=== PATIENT | male | born 1975 | race Caucasian/White ===

== ENCOUNTER 2017-10-03 10:36 | Inpatient (IN) | payer BC, OTHER ==
[~2017-10-03] VITALS: Ht 177.8 cm; Wt 85.7 kg
[2017-10-03] MEDS ORDERED: MAGNESIUM HYDROXIDE 30 ML LIQUID UDC PO PRN (16:30)
[2017-10-03] MEDS ORDERED: HYDROCORTISONE 1% LOTION 118 ML BOTTLE TOP PRN (16:30)
[2017-10-03] MEDS ORDERED: LORAZEPAM 2 MG/1 ML VIAL IM PRN (16:30)
[2017-10-03] MEDS ORDERED: DICYCLOMINE HCL 20 MG TABLET PO PRN (16:30)
[2017-10-03] MEDS ORDERED: LOPERAMIDE HCL 2 MG CAPSULE PO PRN ×2 (16:30)
[2017-10-03] MEDS ORDERED: BUPRENORPHINE HCL 2 MG TAB.SUBL SL PRN (16:30)
[2017-10-03] MEDS ORDERED: MAG HYDROX/AL HYDROX/SIMETH 30 ML LIQUID UDC PO PRN (16:30)
[2017-10-03] MEDS ORDERED: ACETAMINOPHEN 325 MG TABLET PO PRN (16:30)
[2017-10-03] MEDS ORDERED: NICOTINE POLACRILEX 4 MG GUM-PK OF TEN BC PRN (16:30)
[2017-10-03] MEDS ORDERED: diphenhydrAMINE 50 MG CAPSULE PO PRN (16:30)
[2017-10-03] MEDS ORDERED: LORAZEPAM 1 MG TABLET PO PRN ×2 (16:30)
[2017-10-03] MEDS ORDERED: NICOTINE 14 MG/24HR PATCH TD PRN (16:30)
[2017-10-03] MEDS ORDERED: DOCUSATE SODIUM 250 MG CAPSULE PO PRN (16:30)
[2017-10-03] MEDS ORDERED: OMEPRAZOLE 20MG PO PRN (16:30)
[2017-10-03] MEDS ORDERED: MIRALAX 17 GM POWD.PACK PO PRN (16:30)
[2017-10-03] MEDS ORDERED: VALS320T2 PO (17:02)
[2017-10-03] MEDS ORDERED: IBUP-1957 PO (17:02)
[2017-10-03] MEDS ORDERED: QUET50TA PO (17:02)
[2017-10-03] MEDS ORDERED: GABA600T2 PO (17:02)
[2017-10-03] MEDS ORDERED: OMEP20CA10 PO (17:02)
[2017-10-03] MEDS ORDERED: METH-406 PO (17:02)
[2017-10-03] MEDS ORDERED: BENZ12LI2 MM (17:02)
[2017-10-03] MEDS ORDERED: ALBU8HFA4 (17:02)
[2017-10-03] MEDS ORDERED: HYDR-3026 PO (17:02)
[2017-10-03] MEDS ORDERED: ONDA4TAB11 PO (17:02)
[2017-10-03] MEDS: LORAZEPAM 1 MG TABLET PO SCH ×2 (17:13→21:13)
[2017-10-03 17:22] LABS: *AMPHETAMINE, URINE NEGATIVE (NEGATIVE); *BARBITURATE, URINE NEGATIVE (NEGATIVE); *CANNABINOID, URINE NEGATIVE (NEGATIVE); *COCCAINE, URINE NEGATIVE (NEGATIVE); *OPIATE, URINE NEGATIVE (NEGATIVE); *PHENCYCLIDINE SCREEN,URINE NEGATIVE (NEGATIVE)
[2017-10-03] MEDS: BUPRENORPHINE HCL 2 MG TAB.SUBL SL SCH ×2 (17:28→21:15)
[2017-10-03] MEDS: ONDANSETRON ODT 4 MG TAB.RAPDIS SL PRN (17:31)
[2017-10-03] MEDS: THIAMINE HCL 100 MG TABLET PO SCH (17:32)
[2017-10-03 17:54] LABS: BASOPHILS % (AUTO) 0.3 % (0.0-2.0); EOSINOPHILS % (AUTO) 0.1 % (0.0-7.0); HEMATOCRIT 41.2 % (36.7-47.1); HEMOGLOBIN 14.2 g/dL (12.5-16.3); LYMPHOCYTES # (AUTO) 3.4 K/uL (20.0-40.0); LYMPHOCYTES % (AUTO) 35.5 % (20.5-51.5); MEAN CORPUSCULAR HEMOGLOBIN 28.4 uug (23.8-33.4); MEAN CORPUSCULAR HGB CONC 35 g/dL (32.5-36.3); MEAN CORPUSCULAR VOLUME 82.3 fL (73.0-96.2); MONOCYTES # (AUTO) 0.6 K/uL (2.0-10.0); MONOCYTES % (AUTO) 6.6 % (0.0-11.0); NEUTROPHILS # (AUTO) 5.5 K/uL (1.8-8.9); NEUTROPHILS % (AUTO) 57.5 % (38.5-71.5); PLATELET COUNT (AUTO) 222 K/uL (152-348); RED BLOOD CELL COUNT(AUTO) 5.01 MIL/uL (4.06-5.63); WHITE BLOOD COUNT (AUTO) 9.7 K/uL (3.6-10.2)
[2017-10-03 18:03] LABS: ETHANOL < 3 MG/DL (0-0)
[2017-10-03 18:10] LABS: ALANINE AMINOTRANSFERASE 36 U/L (16-63); ALKALINE PHOSPHATASE 87 U/L (50-136); AMYLASE 40 U/L (25-115); ASPARTATE AMINOTRANSFERASE 19 U/L (15-37); BILIRUBIN,TOTAL 0.4 mg/dL (0.2-1.0); CARBON DIOXIDE 27 mmol/L (21-32); CHLORIDE 104 mmol/L (98-107); GLUCOSE 82 mg/dL (74-106); MAGNESIUM 2.2 mg/dL (1.8-2.4); POTASSIUM 3.9 mmol/L (3.5-5.1); TOTAL PROTEIN, SERUM 7.5 g/dL (6.4-8.2); UREA NITROGEN, BLOOD 12 mg/dL (7-18)
[2017-10-03 20:00] VITALS: BP 149/91
[2017-10-03] MEDS: GABAPENTIN 600MG PO SCH (21:14)
[2017-10-03] MEDS: METHOCARBAMOL 750 MG TABLET PO PRN (21:15)
[2017-10-04] VITALS (7 sets, daily range): BP systolic 122–169; BP diastolic 71–105
[2017-10-04] MEDS: hydrALAZINE HCL 50 MG TABLET PO PRN (00:33)
[2017-10-04] MEDS: ALBUTEROL INHALER INH PRN (00:34)
[2017-10-04] MEDS: ONDANSETRON ODT 4 MG TAB.RAPDIS SL PRN (01:19)
[2017-10-04] MEDS: ONDANSETRON 4 MG/2 ML VIAL IM PRN (02:52)
[2017-10-04] MEDS: CLONIDINE HCL 0.1 MG TABLET PO PRN (04:21)
[2017-10-04] MEDS ORDERED: TUBERCULIN,PURIF.PROT.DERIV. 5 TU/0.1 ML TEST ID ONE (09:00)
[2017-10-04] MEDS: BUPRENORPHINE HCL 2 MG TAB.SUBL SL SCH ×3 (09:05→20:27)
[2017-10-04] MEDS: MULTIVITAMINS,THERAPEUTIC TABLET PO SCH (09:05)
[2017-10-04] MEDS: FOLIC ACID 1 MG TABLET PO SCH (09:05)
[2017-10-04] MEDS: THIAMINE HCL 100 MG TABLET PO SCH (09:05)
[2017-10-04] MEDS: LORAZEPAM 1 MG TABLET PO SCH ×3 (09:05→20:26)
[2017-10-04] MEDS: VALSARTAN 320MG PO SCH (09:10)
[2017-10-04] MEDS: HYDROCORTISONE 1% CREAM 30 GM TUBE TP PRN (09:10)
[2017-10-04] MEDS: GABAPENTIN 600MG PO SCH ×3 (09:10→21:59)
[2017-10-04] MEDS ORDERED: HYDROXYZINE PAMOATE 25 MG CAPSULE PO PRN (14:15)
[2017-10-04] MEDS: METHOCARBAMOL 750 MG TABLET PO PRN (20:26)
[2017-10-04] MEDS: QUETIAPINE FUMARATE 25 MG TABLET PO SCH (21:59)
[2017-10-05] VITALS (8 sets, daily range): BP systolic 112–162; BP diastolic 79–98
[2017-10-05] MEDS: hydrALAZINE HCL 50 MG TABLET PO PRN ×2 (01:53→19:32)
[2017-10-05] MEDS: LORAZEPAM 1 MG TABLET PO SCH ×2 (08:59→12:12)
[2017-10-05] MEDS: FOLIC ACID 1 MG TABLET PO SCH (08:59)
[2017-10-05] MEDS: MULTIVITAMINS,THERAPEUTIC TABLET PO SCH (08:59)
[2017-10-05] MEDS: THIAMINE HCL 100 MG TABLET PO SCH (08:59)
[2017-10-05] MEDS ORDERED: BUPRENORPHINE HCL 2 MG TAB.SUBL SL SCH (09:00)
[2017-10-05] MEDS: VALSARTAN 320MG PO SCH (09:00)
[2017-10-05] MEDS: GABAPENTIN 600MG PO SCH (09:09)
[2017-10-05 10:08] LABS: HEPATITIS B SURFACE AG Negative (Negative)
[2017-10-05] MEDS: ONDANSETRON ODT 4 MG TAB.RAPDIS SL PRN ×2 (12:12→21:45)
[2017-10-05] MEDS: BUPRENORPHINE HCL 2 MG TAB.SUBL SL SCH ×2 (14:56→21:45)
[2017-10-05] MEDS: KETOROLAC TROMETHAMINE 30 MG INJ IM PRN (14:58)
[2017-10-05] MEDS: ONDANSETRON 4 MG/2 ML VIAL IM PRN (14:59)
[2017-10-05] MEDS: DICYCLOMINE HCL 20 MG TABLET PO SCH ×2 (14:59→21:52)
[2017-10-05] MEDS: PATIENT MAY USE OWN MED- MD OK PO SCH (15:23)
[2017-10-05] MEDS: ALBUTEROL INHALER INH PRN (15:31)
[2017-10-05] MEDS ORDERED: LORAZEPAM 1 MG TABLET PO SCH ×2 (17:00→21:00)
[2017-10-05] MEDS ORDERED: LORAZEPAM 1 MG TABLET PO ONE (19:30)
[2017-10-05] MEDS ORDERED: GABAPENTIN 300 MG CAPSULE PO SCH (21:00)
[2017-10-05] MEDS: QUETIAPINE FUMARATE 25 MG TABLET PO SCH (21:52)
[2017-10-05] MEDS: IBUPROFEN 600 MG TABLET PO PRN (21:53)
[2017-10-05] MEDS: CLONIDINE HCL 0.1 MG TABLET PO SCH (21:53)
[2017-10-05] MEDS: CLONIDINE HCL 0.1 MG TABLET PO PRN (23:44)
[2017-10-06 04:00] VITALS: BP 125/48
[2017-10-06 08:00] VITALS: BP 114/66
[2017-10-06] MEDS: VALSARTAN 320MG PO SCH (08:32)
[2017-10-06] MEDS: FOLIC ACID 1 MG TABLET PO SCH (08:33)
[2017-10-06] MEDS: CLONIDINE HCL 0.1 MG TABLET PO SCH ×3 (08:33→20:02)
[2017-10-06] MEDS: THIAMINE HCL 100 MG TABLET PO SCH (08:33)
[2017-10-06] MEDS: LORAZEPAM 1 MG TABLET PO SCH ×2 (08:33→14:15)
[2017-10-06] MEDS: BUPRENORPHINE HCL 2 MG TAB.SUBL SL SCH ×3 (08:33→20:02)
[2017-10-06] MEDS: MULTIVITAMINS,THERAPEUTIC TABLET PO SCH (08:33)
[2017-10-06] MEDS: DICYCLOMINE HCL 20 MG TABLET PO SCH ×3 (08:33→20:06)
[2017-10-06] MEDS: PATIENT MAY USE OWN MED- MD OK PO SCH (08:33)
[2017-10-06] MEDS: ONDANSETRON ODT 4 MG TAB.RAPDIS SL PRN ×2 (11:05→19:57)
[2017-10-06 12:00] VITALS: BP 128/85
[2017-10-06] MEDS: KETOROLAC TROMETHAMINE 30 MG INJ IM PRN (12:08)
[2017-10-06] MEDS: ONDANSETRON 4 MG/2 ML VIAL IM PRN (12:10)
[2017-10-06] MEDS: ALBUTEROL INHALER INH PRN (12:18)
[2017-10-06] MEDS: GABAPENTIN 300 MG CAPSULE PO SCH ×2 (14:14→20:01)
[2017-10-06] MEDS: LIDOCAINE 5% PATCH TD SCH (14:15)
[2017-10-06 16:00] VITALS: BP 137/74
[2017-10-06 20:00] VITALS: BP 126/68
[2017-10-06] MEDS: IBUPROFEN 600 MG TABLET PO PRN (20:00)
[2017-10-06] MEDS: BACLOFEN 10 MG TABLET PO SCH (20:01)
[2017-10-06] MEDS: QUETIAPINE FUMARATE 25 MG TABLET PO SCH (20:06)
[2017-10-06] MEDS ORDERED: LORAZEPAM 1 MG TABLET PO SCH (21:00)
[2017-10-07] VITALS: BP 109/64
[2017-10-07 08:00] VITALS: BP 130/79
[2017-10-07] MEDS: GABAPENTIN 300 MG CAPSULE PO SCH ×3 (08:09→20:57)
[2017-10-07] MEDS: MULTIVITAMINS,THERAPEUTIC TABLET PO SCH (08:10)
[2017-10-07] MEDS: FOLIC ACID 1 MG TABLET PO SCH (08:10)
[2017-10-07] MEDS: THIAMINE HCL 100 MG TABLET PO SCH (08:10)
[2017-10-07] MEDS: CLONIDINE HCL 0.1 MG TABLET PO SCH ×3 (08:10→20:57)
[2017-10-07] MEDS: BACLOFEN 10 MG TABLET PO SCH (08:10)
[2017-10-07] MEDS: DICYCLOMINE HCL 20 MG TABLET PO SCH ×3 (08:10→20:57)
[2017-10-07] MEDS: LIDOCAINE 5% PATCH TD SCH (08:11)
[2017-10-07] MEDS: VALSARTAN 320MG PO SCH (08:16)
[2017-10-07] MEDS ORDERED: LORAZEPAM 1 MG TABLET PO SCH (09:00)
[2017-10-07] MEDS ORDERED: BUPRENORPHINE HCL 2 MG TAB.SUBL SL SCH (09:00)
[2017-10-07] MEDS: METHOCARBAMOL 750 MG TABLET PO PRN (09:25)
[2017-10-07] MEDS: KETOROLAC TROMETHAMINE 30 MG INJ IM PRN (09:27)
[2017-10-07] MEDS ORDERED: IBUPROFEN 800 MG TABLET PO PRN (11:00)
[2017-10-07] MEDS: hydrALAZINE HCL 50 MG TABLET PO PRN (11:13)
[2017-10-07 11:31] LABS: BASOPHILS # (AUTO) 0.1 K/uL (0.0-8.0); BASOPHILS % (AUTO) 0.5 % (0.0-2.0); EOSINOPHILS % (AUTO) 0.1 % (0.0-7.0); HEMATOCRIT 39.6 % (36.7-47.1); HEMOGLOBIN 13.2 g/dL (12.5-16.3); LYMPHOCYTES # (AUTO) 3.5 K/uL (20.0-40.0); LYMPHOCYTES % (AUTO) 23.3 % (20.5-51.5); MEAN CORPUSCULAR HEMOGLOBIN 28.2 uug (23.8-33.4); MEAN CORPUSCULAR HGB CONC 33 g/dL (32.5-36.3); MEAN CORPUSCULAR VOLUME 84.6 fL (73.0-96.2); MONOCYTES # (AUTO) 0.9 K/uL (2.0-10.0); MONOCYTES % (AUTO) 5.9 % (0.0-11.0); NEUTROPHILS # (AUTO) 10.4 K/uL (1.8-8.9); NEUTROPHILS % (AUTO) 70.2 % (38.5-71.5); PLATELET COUNT (AUTO) 222 K/uL (152-348); RED BLOOD CELL COUNT(AUTO) 4.69 MIL/uL (4.06-5.63)
[2017-10-07 11:44] LABS: POTASSIUM 4.2 mmol/L (3.5-5.1); WHITE BLOOD COUNT (AUTO) 14.8 K/uL (3.6-10.2)
[2017-10-07 12:00] VITALS: BP 147/92
[2017-10-07] MEDS: ACETAMINOPHEN 325 MG TABLET PO SCH ×2 (14:28→20:57)
[2017-10-07] MEDS: BACLOFEN 20 MG TABLET PO SCH ×2 (14:28→20:57)
[2017-10-07] MEDS: QUETIAPINE FUMARATE 25 MG TABLET PO SCH (14:29)
[2017-10-07] MEDS: BUPRENORPHINE HCL 2 MG TAB.SUBL SL SCH ×2 (14:29→20:57)
[2017-10-07] MEDS: LORAZEPAM 1 MG TABLET PO SCH ×2 (14:29→20:56)
[2017-10-07 16:00] VITALS: BP 94/52
[2017-10-07 20:00] VITALS: BP 157/98
[2017-10-07] MEDS ORDERED: QUETIAPINE FUMARATE 200 MG TABLET PO SCH (21:00)
[2017-10-08] VITALS (8 sets, daily range): BP systolic 125–176; BP diastolic 69–106
[2017-10-08] MEDS: ALBUTEROL INHALER INH PRN (00:23)
[2017-10-08 07:22] LABS: BASOPHILS # (AUTO) 0.1 K/uL (0.0-8.0); BASOPHILS % (AUTO) 0.4 % (0.0-2.0); HEMATOCRIT 42.6 % (36.7-47.1); LYMPHOCYTES # (AUTO) 2.6 K/uL (20.0-40.0); LYMPHOCYTES % (AUTO) 19.3 % (20.5-51.5); MEAN CORPUSCULAR HEMOGLOBIN 27.7 uug (23.8-33.4); MEAN CORPUSCULAR HGB CONC 33 g/dL (32.5-36.3); MEAN CORPUSCULAR VOLUME 84.3 fL (73.0-96.2); MONOCYTES # (AUTO) 0.8 K/uL (2.0-10.0); MONOCYTES % (AUTO) 6.3 % (0.0-11.0); NEUTROPHILS # (AUTO) 9.9 K/uL (1.8-8.9); PLATELET COUNT (AUTO) 240 K/uL (152-348); RED BLOOD CELL COUNT(AUTO) 5.05 MIL/uL (4.06-5.63); WHITE BLOOD COUNT (AUTO) 13.4 K/uL (3.6-10.2)
[2017-10-08] MEDS: KETOROLAC TROMETHAMINE 30 MG INJ IM PRN ×2 (07:24→14:22)
[2017-10-08 07:32] LABS: CREATININE 0.7 mg/dL (0.6-1.3); MAGNESIUM 2.4 mg/dL (1.8-2.4); PHOSPHOROUS 3.8 mg/dL (2.5-4.9); POTASSIUM 4.1 mmol/L (3.5-5.1)
[2017-10-08] MEDS: GABAPENTIN 300 MG CAPSULE PO SCH ×3 (08:00→21:07)
[2017-10-08] MEDS: ACETAMINOPHEN 325 MG TABLET PO SCH ×3 (08:00→21:04)
[2017-10-08] MEDS: FOLIC ACID 1 MG TABLET PO SCH (08:01)
[2017-10-08] MEDS: THIAMINE HCL 100 MG TABLET PO SCH (08:01)
[2017-10-08] MEDS: MULTIVITAMINS,THERAPEUTIC TABLET PO SCH (08:01)
[2017-10-08] MEDS: DICYCLOMINE HCL 20 MG TABLET PO SCH ×3 (08:01→21:06)
[2017-10-08] MEDS: BACLOFEN 20 MG TABLET PO SCH ×3 (08:01→21:06)
[2017-10-08] MEDS: VALSARTAN 320MG PO SCH (08:02)
[2017-10-08] MEDS: CLONIDINE HCL 0.1 MG TABLET PO SCH ×3 (08:05→21:04)
[2017-10-08] MEDS: LIDOCAINE 5% PATCH TD SCH ×2 (08:07→16:41)
[2017-10-08] MEDS ORDERED: BUPRENORPHINE HCL 2 MG TAB.SUBL SL SCH ×2 (09:00→21:00)
[2017-10-08] MEDS: QUETIAPINE FUMARATE 25 MG TABLET PO SCH ×2 (09:00→12:19)
[2017-10-08] MEDS ORDERED: LORAZEPAM 1 MG TABLET PO SCH ×2 (09:00→21:00)
[2017-10-08] MEDS: METHOCARBAMOL 750 MG TABLET PO PRN (12:19)
[2017-10-08] MEDS ORDERED: LIDO30AD10 TD (13:51)
[2017-10-08] MEDS ORDERED: ACET325T53 PO (13:51)
[2017-10-08] MEDS ORDERED: BACL20TA PO (13:51)
[2017-10-08] MEDS ORDERED: DIPH50CA37 PO (13:51)
[2017-10-08] MEDS ORDERED: IBUP-1957 PO (13:51)
[2017-10-08] MEDS ORDERED: DICY20TA28 PO (13:51)
[2017-10-08] MEDS ORDERED: CLON0.1T14 PO (13:51)
[2017-10-08] MEDS ORDERED: GABA-534 PO (13:51)
[2017-10-08] MEDS: HYDROCORTISONE 1% CREAM 30 GM TUBE TP PRN (14:20)
[2017-10-08] MEDS ORDERED: MINERAL OIL/PETROLATUM,WHITE 57 GM TUBE TOP PRN (15:30)
[2017-10-08] MEDS: QUETIAPINE FUMARATE 200 MG TABLET PO SCH (21:05)
[2017-10-08] MEDS ORDERED: QUETIAPINE FUMARATE 25 MG TABLET PO PRN (22:00)
[2017-10-09 04:00] VITALS: BP 123/84
[2017-10-09 08:00] VITALS: BP 124/97
[2017-10-09] MEDS: GABAPENTIN 300 MG CAPSULE PO SCH ×3 (08:37→22:04)
[2017-10-09] MEDS: FOLIC ACID 1 MG TABLET PO SCH (08:37)
[2017-10-09] MEDS: THIAMINE HCL 100 MG TABLET PO SCH (08:37)
[2017-10-09] MEDS: MULTIVITAMINS,THERAPEUTIC TABLET PO SCH (08:38)
[2017-10-09] MEDS: VALSARTAN 320MG PO SCH (08:38)
[2017-10-09] MEDS: DICYCLOMINE HCL 20 MG TABLET PO SCH ×3 (08:38→22:03)
[2017-10-09] MEDS: ACETAMINOPHEN 325 MG TABLET PO SCH (08:38)
[2017-10-09] MEDS: BACLOFEN 20 MG TABLET PO SCH ×3 (08:38→22:03)
[2017-10-09] MEDS: KETOROLAC TROMETHAMINE 30 MG INJ IM PRN ×2 (08:39→14:45)
[2017-10-09] MEDS: CLONIDINE HCL 0.1 MG TABLET PO SCH ×3 (08:41→22:05)
[2017-10-09] MEDS ORDERED: BUPRENORPHINE HCL 2 MG TAB.SUBL SL SCH (09:00)
[2017-10-09] MEDS ORDERED: LORAZEPAM 1 MG TABLET PO SCH (09:00)
[2017-10-09] MEDS ORDERED: PNEUMOCOCCAL 23-VAL P-SAC VAC 0.5 ML VIAL IM ONE (10:30)
[2017-10-09] MEDS: LIDOCAINE 5% PATCH TD SCH (10:54)
[2017-10-09] MEDS: METHOCARBAMOL 750 MG TABLET PO PRN (10:55)
[2017-10-09 12:00] VITALS: BP 128/80
[2017-10-09] MEDS: ACETAMINOPHEN ES 500 MG TABLET PO SCH ×2 (14:44→22:03)
[2017-10-09 16:00] VITALS: BP 110/82
[2017-10-09 20:00] VITALS: BP 124/82
[2017-10-09] MEDS: QUETIAPINE FUMARATE 200 MG TABLET PO SCH (22:03)
[2017-10-10] MEDS: KETOROLAC TROMETHAMINE 30 MG INJ IM PRN (06:26)
[2017-10-10 08:00] VITALS: BP 123/65
[2017-10-10] MEDS: VALSARTAN 320MG PO SCH (08:51)
[2017-10-10] MEDS: DICYCLOMINE HCL 20 MG TABLET PO SCH (08:52)
[2017-10-10] MEDS: GABAPENTIN 300 MG CAPSULE PO SCH (08:53)
[2017-10-10] MEDS: BACLOFEN 20 MG TABLET PO SCH (08:53)
[2017-10-10] MEDS: THIAMINE HCL 100 MG TABLET PO SCH (08:53)
[2017-10-10] MEDS: ACETAMINOPHEN ES 500 MG TABLET PO SCH (08:53)
[2017-10-10] MEDS: MULTIVITAMINS,THERAPEUTIC TABLET PO SCH (08:53)
[2017-10-10] MEDS: FOLIC ACID 1 MG TABLET PO SCH (08:53)
[2017-10-10 08:54] VITALS: BP 120/80
[2017-10-10] MEDS: CLONIDINE HCL 0.1 MG TABLET PO SCH (08:54)
[2017-10-11 16:08] LABS: *QFT MITOGEN VALUE 7.43 IU/mL (.); *QFT TB AG MINUS NIL VALUE 0.01 IU/mL (.); *QFT TB AG VALUE 0.04 IU/mL (.); *QFT TB GOLD Negative (Negative)
== END 2017-10-10 09:35 | disposition other institution (70) | DRG 895 ==
LOC: SRC 15:38
PROVIDERS: ADMIT Internal Medicine; ATTEND Internal Medicine
PROC: HZ2ZZZZ Detoxification Services for Substance Abuse Treatment (ICD-10-PCS; principal; 2017-10-03)
PROC: HZ41ZZZ Group Counseling for Substance Abuse Treatment, Behavioral (ICD-10-PCS; 2017-10-05)
PROC: HZ31ZZZ Individual Counseling for Substance Abuse Treatment, Behavioral (ICD-10-PCS; 2017-10-06)
DX: F10.232 Alcohol dependence with withdrawal with perceptual disturbance (principal); L40.50 Arthropathic psoriasis, unspecified; I15.9 Secondary hypertension, unspecified; W18.30XA Fall on same level, unspecified, initial encounter; K70.0 Alcoholic fatty liver; F11.23 Opioid dependence with withdrawal; Y90.9 Presence of alcohol in blood, level not specified; F17.210 Nicotine dependence, cigarettes, uncomplicated; Z88.0 Allergy status to penicillin; Z82.49 Family history of ischemic heart disease and other diseases of the circulatory system; Z80.0 Family history of malignant neoplasm of digestive organs; Z81.1 Family history of alcohol abuse and dependence; G47.00 Insomnia, unspecified; F41.9 Anxiety disorder, unspecified; F14.10 Cocaine abuse, uncomplicated; E66.3 Overweight; Z68.27 Body mass index [BMI] 27.0-27.9, adult; R76.11 Nonspecific reaction to tuberculin skin test without active tuberculosis; Z82.3 Family history of stroke; Z83.3 Family history of diabetes mellitus; Z83.49 Family history of other endocrine, nutritional and metabolic diseases; R26.2 Difficulty in walking, not elsewhere classified; M16.0 Bilateral primary osteoarthritis of hip; L73.2 Hidradenitis suppurativa; L05.91 Pilonidal cyst without abscess; M54.2 Cervicalgia; R20.0 Anesthesia of skin; F32.9 Major depressive disorder, single episode, unspecified; Z59.1 Inadequate housing; Z91.89 Other specified personal risk factors, not elsewhere classified; M50.80 Other cervical disc disorders, unspecified cervical region; Y92.231 Patient bathroom in hospital as the place of occurrence of the external cause; S00.81XA Abrasion of other part of head, initial encounter; L29.9 Pruritus, unspecified; G89.29 Other chronic pain
CPT/HCPCS: 36415; 70030-TC; 71045; 73502; 80307; 83735; 84100; 85025; 86140; 86480; 86580; 86592; 86705; 86803; 87040; 87340; 87806; 90732; A4663; A9150; G0480; J1885; J2405; Q0162

== ENCOUNTER 2017-10-09 08:43 | Outpatient (CLI) | payer BC, OTHER ==
[~2017-10-09 08:43] MED LIST: ACET325T53 PO; ALBU8HFA4; BACL20TA PO; BENZ12LI2 MM; CLON0.1T14 PO; DICY20TA28 PO; DIPH50CA37 PO; GABA-534 PO; GABA600T2 PO; HYDR-3026 PO; IBUP-1957 PO; LIDO30AD10 TD; METH-406 PO; OMEP20CA10 PO; ONDA4TAB11 PO; QUET50TA PO; VALS320T2 PO
== END 2017-10-09 23:59 | disposition home or self-care (01) ==
LOC: CT 08:43
PROVIDERS: ATTEND Internal Medicine
DX: K40.20 Bilateral inguinal hernia, without obstruction or gangrene, not specified as recurrent (principal)
CPT/HCPCS: 72192